=== PATIENT | female | born 1960 | race Caucasian/White ===

== ENCOUNTER 2019-05-01 16:45 | Emergency (ER) | payer MEDICAID, SELFPAY ==
--- NOTE | ~2019-05-01 | XR_ITS ---
XR chest 2V 05/01/2019 17:20 Indication: Redness of breath. History of CHF. Procedure: PA and lateral views of the chest Comparison: Comparison to multiple prior studies sequentially, with oldest reviewed study dated 06/2017. Findings: Cardiomegaly with mild interstitial edema. No pleural effusion or pneumothorax. No acute os seous abnormality. Impression: 1: Cardiomegaly with mild interstitial edema. Reviewed, dictated and finalized at location A. TAIN SUPERVISOR Impression: 1: Cardiomegaly with mild interstitial edema.
[2019-05-01 16:49] VITALS: BP 124/80; PULSE 90; RESP 16; TEMP 36.9; O2SAT 100
--- NOTE | 2019-05-01 16:55 | ECG_ITS ---
Measurements Intervals [place] Rate: 92 P: 35 CO: 145 QRS: 64 QRSD: 106 T: 198 QT: 394 QTc: 489 Interpretive Statements SINUS RHYTHM POSSIBLE LEFT ATRIAL ENLARGEMENT CANNOT RULE OUT SEPTAL INFARCT, AGE INDETERMINATE BORDERLINE ST-T WAVE ABNORMALITY- INF/LAT LEADS BASELINE ARTIFACT- I, II, AVR, AVL ABNORMAL ECG Electronically Signed On 05-01-2019 17:20:08 SERVICE NOW DEVELOPER by Figueroa Viramontes D.O.
[2019-05-01 17:05] LABS: Basophils Percent Auto 0.6 % (0.2-1.2); Eosinophils Percent Auto 0.6 % (0-4.4); Hematocrit 43.1 % (37.0-47.0); Hemoglobin 13.3 g/dL (12.0-15.0); Immature Granulocyte Absolute 0.02 K/mm3 (0.00-0.031); Immature Granulocyte Percent A 0.3 % (0-0.5); Lymphocytes Percent Auto 13.4 % (18.3-44.2); Mean Corpuscular HGB Conc 30.9 g/dl (32-36); Mean Corpuscular Hemoglobin 30.9 pg (26-34); Mean Platelet Volume 8.7 fl (7.4-10.4); Monocytes Absolute Auto 0.5 K/mm3 (0.1-0.6); Monocytes Percent Auto 7.7 % (2.6-8.5); Neutrophils Absolute Auto 5.2 K/mm3 (1.3-6.7); Neutrophils Percent Auto 77.4 % (45.5-73.1); Platelet Count Result 309 k/mm3 (150-375); Red Blood Count 4.31 M/mm3 (4.2-5.4); Red Cell Distribution Width 15.4 % (11.5-14.5); White Blood Count 6.7 K/mm3 (4.5-10.0)
[2019-05-01 17:17] LABS: Blood Urea Nitrogen 23 mg/dL (7-17); Calcium 8.8 mg/dL (8.4-10.2); Carbon Dioxide 19 mmol/L (22-30); Chloride 107 mmol/L (98-107); Estimated CRCL calculation 35 ml/min; Estimated Glomerular Filt Rate 51; Glucose 125 mg/dL (65-105); Potassium 4.7 mmol/L (3.4-5.0); Sodium 137 mmol/L (137-145)
--- NOTE | 2019-05-06 15:06 | PC.NURSE ---
LATE ENTRY. AT 1757 ON 05/01/2019 PT WAS NOT FOUND IN WAITING ROOM
== END 2019-05-01 17:57 | disposition left against medical advice (07) ==
LOC: ANHED 19:32
PROVIDERS: Emergency Provider Emergency Medicine
DX: R06.9 Unspecified abnormalities of breathing (principal)
CPT/HCPCS: 36415; 71046; 80048; 85025; 93005; 99199

== ENCOUNTER 2019-05-13 18:18 | Observation (INO) | payer OTHER, SELFPAY ==
--- NOTE | ~2019-05-13 | XR_ITS ---
EXAMINATION: XR chest 2V DATE: 05/13/2019 19:07 INDICATION: Shortness of breath TECHNIQUE: AP and lateral views of the chest are obtained. COMPARISON: 05/01/2019 FINDINGS: The lungs are hyperinflated. There are minimal opacities of the mid and lower lung zones. S mall pleural effusions are present. There is no pneumothorax. Stable cardiomegaly is noted. There is mild thoracic spondylosis. IMPRESSION: 1. Opacities of the mid and lower lung zones which could reflect pneumonia and/or pulmonary edema and /or atelectasis. 2. Stable cardiomegaly. Reviewed, dictated and finalized at location A. R MACHINE IMPRESSION: 1. Opacities of the mid and lower lung zones which could reflect pneumonia and/ or pulmonary edema and/or atelectasis. 2. Stable cardiomegaly.
[2019-05-13 18:35] VITALS: BP 138/90; PULSE 91; PULSE 93; RESP 28; O2SAT 96
--- NOTE | 2019-05-13 19:05 | ED.SOB ---
HPI - SOB/Dyspnea General Chief Complaint: Weakness <Theodore Parsons MD - Last Filed: 05/13/19 19:14> Stated Complaint: SOB <Theodore Parsons MD - Last Filed: 05/13/19 19:14> Time Seen by Provider: 05/13/19 18:23 <Theodore Parsons MD - Last Filed: 05/13/19 19:14> History of Present Illness HPI Narrative: Patient is a 58-year-old female who presents ER with shortness of breath and chest pain. Ongoing for several weeks. Pain is across the center of her chest and is only worsened by dyspnea and not necessarily with exertion. No runny nose/sore throat/productive cough. She is not oxygen dependent. Patient is known to have an ejection fraction of 10 to 15%. She is supposed to be wearing a LifeVest defibrillator but she reports it does not fit her right so she does not wear it. Her card setter is Dr. Viramontes. She is unaware of the name of her medications that she takes to help control her heart failure and heart disease. <Theodore Parsons MD - Last Filed: 05/13/19 19:14> Related Data Allergies/Adverse Reactions: Allergies Allergy/AdvReac Type Severity Reaction Status Date / Time No Known Allergies Allergy Verified 05/07/19 14:06 <Theodore Parsons MD - Last Filed: 05/13/19 19:14> Review of Systems Review of Systems: All systems reviewed & are unremarkable except as noted in HPI and below <Theodore Parsons MD - Last Filed: 05/13/19 19:14> Constitutional: Constitutional: Denies chills, Denies fever(s) and Denies weakness <Theodore Parsons MD - Last Filed: 05/13/19 19:14> ENT: Denies nasal congestion and Denies sore throat <Theodore Parsons MD - Last Filed: 05/13/19 19:14> Cardiovascular: Cardiovascular: Reports chest pain, Denies rapid heart rate and Denies radiating jaw, neck or arm pain <Theodore Parsons MD - Last Filed: 05/13/19 19:14> Respiratory: Respiratory: Denies cough, Reports dyspnea and Denies wheezing <Theodore Parsons MD - Last Filed: 05/13/19 19:14> Gastrointestinal: Gastrointestinal: Denies abdominal pain, Denies nausea and Denies vomiting <Theodore Parsons MD - Last Filed: 05/13/19 19:14> PMFSH Past Medical History Medical History: Medical History (Updated 05/14/19 @ 01:18 by Regina Pichardo MD) CHF (congestive heart failure) Depression Gastric perforation Hypertension Hypothyroidism <Theodore Parsons MD - Last Filed: 05/13/19 19:14> Surgical History Surgical History: Surgical History (Updated 05/13/19 @ 19:07 by Theodore Parsons MD) H/O cardiac catheterization History of laparotomy <Theodore Parsons MD - Last Filed: 05/13/19 19:14> Family History Family History: Family History Father Hypertension Mother Hypertension Other Depression Cancer Other Cerebrovascular accident Family history of cardiovascular disease Family history of malignant neoplasm Family history of tuberculosis <Theodore Parsons MD - Last Filed: 05/13/19 19:14> Social History Social History: Social History Social History: Patient current lives alone. She is a full code. Her power of attorney law clerk is Kerry Wren, her daughter. Smoking packs per day: 1 Smoking cigarettes per day: 20.0 Years smoked: 10 Smoking pack-years: 10.00 Smoking status: Former smoker Tobacco type: cigarettes Second hand tobacco smoke exposure: Yes Smoking end date: 04/01/96 Alcohol intake: former Drinks per week: 1 Substance use: former Substance use type: marijuana Gender identity (if verbalized by the patient): Female Spiritual care concerns: No Agree to blood products: Yes <Theodore Parsons MD - Last Filed: 05/13/19 19:14> Exam Narrative: Exam Narrative: GENERAL: Chronically ill-appearing, well-nourished, and in no acute distress. HEAD: Normocephalic, atraumatic. EYES: PERRL and EOMI. ENT:
[2019-05-13] MEDS: BELLADONNA ALK/PHENOB ELIX 10 ML, MAG HYDROX/ALUMINUM HYD/SIMETH 30 ML, LIDOCAINE HCL 2... PO (19:33)
[2019-05-13 19:34] LABS: Basophils Percent Auto 0.5 % (0.2-1.2); Eosinophils Percent Auto 0.5 % (0-4.4); Hemoglobin 13.7 g/dL (12.0-15.0); Immature Granulocyte Absolute 0.02 K/mm3 (0.00-0.031); Immature Granulocyte Percent A 0.3 % (0-0.5); Lymphocytes Absolute Auto 1.06 K/mm3 (0.9-3.2); Mean Corpuscular HGB Conc 31.1 g/dl (32-36); Mean Corpuscular Hemoglobin 30.2 pg (26-34); Mean Corpuscular Volume 97.1 fl (80-100); Mean Platelet Volume 8.9 fl (7.4-10.4); Monocytes Absolute Auto 0.4 K/mm3 (0.1-0.6); Monocytes Percent Auto 6.4 % (2.6-8.5); Neutrophils Absolute Auto 4.7 K/mm3 (1.3-6.7); Neutrophils Percent Auto 75.3 % (45.5-73.1); Platelet Count Result 326 k/mm3 (150-375); Red Blood Count 4.53 M/mm3 (4.2-5.4); Red Cell Distribution Width 15.1 % (11.5-14.5); White Blood Count 6.3 K/mm3 (4.5-10.0)
[2019-05-13 19:46] LABS: Alanine Aminotransferase 23 U/L (4-35); Albumin Level 3.7 g/dL (3.5-5.1); Alkaline Phosphatase 93 U/L (38-126); Aspartate Amino Transferase 23 U/L (14-36); Bilirubin,Total 0.8 mg/dL (0.2-1.3); Blood Urea Nitrogen 22 mg/dL (7-17); Calcium 9.5 mg/dL (8.4-10.2); Carbon Dioxide 17 mmol/L (22-30); Chloride 108 mmol/L (98-107); Estimated Glomerular Filt Rate > 60; Glucose 103 mg/dL (65-105); Lipase 75 U/L (23-300); Sodium 139 mmol/L (137-145)
[2019-05-13 19:58] LABS: Troponin I 0.019 ng/mL (0.000-0.034)
[2019-05-13 20:34] LABS: NT Pro B Type Natriuretic Pept > 35000 PG/ML (5-100)
[2019-05-13] MEDS: FUROSEMIDE INJ 40 MG/4 ML VIAL IV PUSH (21:31)
[2019-05-13 21:48] VITALS: BP 119/97; PULSE 87; RESP 26; O2SAT 99
[2019-05-13 22:30] VITALS: BP 132/89; PULSE 85; RESP 20; TEMP 36.4; O2SAT 93; BMI 20.1
--- NOTE | 2019-05-13 23:12 | ADMGEN ---
This patient, Nancy Jaramillo, was admitted to [facility] Surg Room 306-01. Patient/family oriented to hospital policies and general routines including ID bracelet, bed and alarms, visiting hours, pain management, procedures, bathroom and other care routines, personal items, smoking policy, room service/diet, and visiting hours. Valuables list has been completed. Information on how to activate the Rapid Response Team has been discussed. Patient/Family are encouraged to report perceived risks to care and to ask questions if they do not understand what they are told or what they should do.
--- NOTE | 2019-05-13 23:29 | ADMGEN ---
This patient, Nancy Jaramillo, was admitted to [facility] Surg Room 306-01. Patient/family oriented to hospital policies and general routines including ID bracelet, bed and alarms, visiting hours, pain management, procedures, bathroom and other care routines, personal items, smoking policy, room service/diet, and visiting hours. Valuables list has been completed. Information on how to activate the Rapid Response Team has been discussed. Patient/Family are encouraged to report perceived risks to care and to ask questions if they do not understand what they are told or what they should do.
[2019-05-13 23:59] LABS: Troponin I 0.017 ng/mL (0.000-0.034)
[2019-05-14] VITALS (11 sets, daily range): BP systolic 102–128; BP diastolic 63–85; PULSE 80–90; RESP 16–20; TEMP 36.1–36.9; O2SAT 98–100
--- NOTE | 2019-05-14 00:19 | PC.NURSE ---
Stated that the only home medication that she was taking was Lisinopril. The other home medications she had not been taking due to an insurance issue. According to the pharmacy tab on the computer the other home medications had not been filled since May of 2018.
[2019-05-14 01:24] LABS: Troponin I 0.016 ng/mL (0.000-0.034)
[2019-05-14] MEDS: FUROSEMIDE INJ 40 MG/4 ML VIAL IV PUSH (08:52)
--- NOTE | 2019-05-14 11:21 | PM.IMHP ---
H&P: HPI History of Present Illness Chief complaint: chf exacerbation Narrative: Nancy Jaramillo is a 58 year old female with PMH significant for non-ischemic chronic systolic and diastolic CHF with EF 10-15% on echo performed 02/17/19, hypothyroidism, hypertension, depression, hx of gastric perforation during a period of heavy NSAID use, and cardiac cath in 2018 which revealed normal cardiac arteries per chart review. She presented to the ED with complaints of dyspnea, weakness, and chest pain for 3 weeks. She states that her daughter urged her to come in for evaluation due to the aforementioned sx. She reports that her chest pain was in the center of her chest and worse with inspiration. She also endorses orthopnea and PND. She denies fever, abdominal pain, chills, nausea, and vomiting. She denies diarrhea. She has no urinary complaints. She denies cough. The pt reports that she has not been taking her lasix, metoprolol, or protonix for approximately 3 weeks since she ran out of refills. She also states that she missed her outpatient cardiology follow-up appointment with Dr. Viramontes last week because she was not feeling well. She has a life vest at home but has not been wearing it for the past two weeks because she states that it is not fitting properly. She was recently hospitalized 02/17/2020-02/21/2020 for acute on chronic CHF exacerbation due to medication non-compliance. Initial workup in the emergency department was consistent with acute on chronic exacerbation of CHF. BNP was elevated >06306, CXR revealed cardiomegaly with mid and lower lung opacities and small pleural effusions, no evidence of leukocytosis, ECG revealed LVH with no evidence of acute ischemia, troponins were negative x3, and Cr 0.9. Review of Systems Review of Systems: Narrative: Constitutional: Denies fever, chills, and appetite change. Reports weakness and fatigue. Eyes: Denies vision change. No additional eye complaints. ENT: Denies change in hearing, nasal congestion, dysphagia, odynophagia,and sore throat. Cardiovascular: Endorses PND, orthopnea, lightheadedness, and chest pain at admission. Pt reports that these sx have improved significantly today. Respiratory: Denies cough. Endorses dyspnea. Gastrointestinal: Denies abdominal pain, nausea, and vomiting. Genitourinary: Denies dysuria, frequency, urgency, and hesitancy. Musculoskeletal: Denies joint pain and swelling. Denies muscle cramps and weakness. Skin: Denies lesions and wounds. Neurologic: Denies focal weakness, paresthesias, confusion, and speech change. Psychiatric: Denies mood change. Reports hx of depression but reports that she has a good support system and has been able to manage her depression without any antidepressants. Hematologic: Reports easy bruising. Denies bleeding. [facility] Past Medical History Medical History CHF (congestive heart failure) Depression Gastric perforation Hypertension Hypothyroidism Surgical History Surgical History H/O cardiac catheterization History of laparotomy Family History Family History Father Hypertension Mother Hypertension Other Depression Cancer Other Cerebrovascular accident Family history of cardiovascular disease Family history of malignant neoplasm Family history of tuberculosis Social History Social History Social History: Patient current lives alone. She is a full code. Her power of family law attorney is Kerry Wren, her daughter. Smoking packs per day: 1 Smoking cigarettes per day: 20.0 Years smoked: 10 Smoking pack-years: 10.00 Smoking status: Former smoker Tobacco type: cigarettes Second hand tobacco smoke exposure: Yes Smoking end date: 04/01/96 Alcohol intake: former Drinks per we
[2019-05-14] MEDS: METOPROLOL SUCCINATE EXT REL 12.5 MG TABCR PO (13:37)
[2019-05-14 14:40] LABS: Free T4 Free Thyroxine Reflex 0.77 ng/dL (0.78-2.19)
[2019-05-14 15:08] LABS: Blood Urea Nitrogen 29 mg/dL (7-17); Carbon Dioxide 24 mmol/L (22-30); Chloride 98 mmol/L (98-107); Estimated CRCL calculation 37 ml/min; Estimated Glomerular Filt Rate 51; Glucose 90 mg/dL (65-105); Magnesium 2.1 mg/dL (1.6-2.3); Potassium 4.3 mmol/L (3.4-5.0); Sodium 135 mmol/L (137-145)
--- NOTE | 2019-05-14 16:15 | PM.CNCAR ---
Assessment and Plan Assessment and plan (1) Nonischemic cardiomyopathy: Code(s): I42.8 - Other cardiomyopathies Status: Acute (2) Combined systolic and diastolic cardiac dysfunction: Code(s): I51.89 - Other ill-defined heart diseases Status: Acute Assessment and Plan: Resume Metoprolol and Furosemide. Agree with changing Furosemide back to PO dosing. Continue Lisinopril. Resume Life Vest to protect her from sudden cardiac arrest. (3) Non compliance with medical treatment: Code(s): Z91.19 - Patient's noncompliance with other medical treatment and regimen Status: Acute Assessment and Plan: Encourage her to be compliant with medication, follow up, Life vest. (4) NSVT (nonsustained ventricular tachycardia): Code(s): I47.2 - Ventricular tachycardia Status: Acute Assessment and Plan: Metoprolol will help decrease episodes. Life Vest to protect from sudden cardiac arrest. If echo in 3 months after taking medications still shows EF <35%, then would be candidate for ICD. History of Present Illness History of Present Illness Consult date/time: 05/14/19 16:15 Consult regarding heart failure. 58 yr old woman who is my regular cardiology patient who has a history of non-ischemic cardiomyopathy from cardiac cath in 2018 that showed normal coronaries, has systolic heart failure with EF <15% dated back at least May 2018, non-compliance with medication. She presents to hospital compaining of worsening sob that has gradually worsened over the past couple of weeks. She states she ran out of Lasix and Metoprolol about 3 weeks ago and could not get it filled in pharmacy for some reason. She was supposed to follow up with me in my office but had to cancel the appoinment. She reports chest discomfort for last 2 weeks but not now. She was diuresed with IV lasix and her breathing is better now. No edema of legs. On telemetry it was noted she had three 5 beat VT. She has life vest at home from last admission but has not been wearing it as it is too big and does not fit properly. Reason For Visit: chf exacerbation Review of Systems Constitutional: Constitutional: Reports as per HPI and Reports fatigue Cardiovascular: Cardiovascular: Reports as per HPI, Reports chest pain and Denies palpitations Respiratory: Respiratory: Reports as per HPI and Reports dyspnea Gastrointestinal: Gastrointestinal: Reports as per HPI and Denies abdominal pain Genitourinary: Genitourinary: Reports as per HPI Neurologic: Reports as per HPI and Denies Abnormal speech present [facility] Past Medical History Medical History CHF (congestive heart failure) Depression Gastric perforation Hypertension Hypothyroidism Surgical History Surgical History H/O cardiac catheterization History of laparotomy Family History Family History Father Hypertension Mother Hypertension Other Depression Cancer Other Cerebrovascular accident Family history of cardiovascular disease Family history of malignant neoplasm Family history of tuberculosis Social History Social History Social History: Patient current lives alone. She is a full code. Her power of sports attorney is Kerry Wren, her daughter. Smoking packs per day: 1 Smoking cigarettes per day: 20.0 Years smoked: 10 Smoking pack-years: 10.00 Smoking status: Former smoker Tobacco type: cigarettes Second hand tobacco smoke exposure: Yes Smoking end date: 04/01/96 Alcohol intake: former Drinks per week: 1 Substance use: former Substance use type: marijuana Gender identity (if verbalized by the patient): Female Spiritual care concerns: No Agree to blood products: Yes Meds Home Medicati
--- NOTE | 2019-05-14 17:32 | PCDIET ---
Elizabeth DIAMOND for this patient notified that patient states she cannot have anyone bring in her life vest from home because her house is locked with an alarm and no one is allowed in. She states that she has not been wearing it, too large and uncomfortable, causes her to sweat. She states that when she goes home, she may try to wear it with a sports bra.
[2019-05-14] MEDS: FUROSEMIDE 20 MG TABLET PO (19:07)
[2019-05-15] VITALS: PULSE 82
[2019-05-15 04:00] VITALS: PULSE 76
[2019-05-15 06:00] VITALS: BP 117/83; PULSE 81; RESP 16; TEMP 36.8; O2SAT 95
[2019-05-15 06:23] LABS: Basophils Percent Auto 0.7 % (0.2-1.2); Eosinophils Percent Auto 0.7 % (0-4.4); Hematocrit 45.3 % (37.0-47.0); Hemoglobin 14.7 g/dL (12.0-15.0); Immature Granulocyte Absolute 0.02 K/mm3 (0.00-0.031); Immature Granulocyte Percent A 0.3 % (0-0.5); Lymphocytes Absolute Auto 1.05 K/mm3 (0.9-3.2); Lymphocytes Percent Auto 17.7 % (18.3-44.2); Mean Corpuscular HGB Conc 32.5 g/dl (32-36); Mean Corpuscular Hemoglobin 30.2 pg (26-34); Mean Corpuscular Volume 93.2 fl (80-100); Monocytes Absolute Auto 0.5 K/mm3 (0.1-0.6); Monocytes Percent Auto 7.6 % (2.6-8.5); Neutrophils Absolute Auto 4.3 K/mm3 (1.3-6.7); Platelet Count Result 332 k/mm3 (150-375); Red Blood Count 4.86 M/mm3 (4.2-5.4); Red Cell Distribution Width 14.6 % (11.5-14.5); White Blood Count 5.9 K/mm3 (4.5-10.0)
[2019-05-15 06:26] LABS: Blood Urea Nitrogen 28 mg/dL (7-17); Calcium 8.7 mg/dL (8.4-10.2); Carbon Dioxide 22 mmol/L (22-30); Chloride 101 mmol/L (98-107); Cholesterol 113 mg/dL (0-200); Estimated CRCL calculation 41 ml/min; Estimated Glomerular Filt Rate 57; Glucose 90 mg/dL (65-105); HDL Direct 41 mg/dL; Potassium 4.5 mmol/L (3.4-5.0); Sodium 136 mmol/L (137-145); Triglycerides 96 mg/dL (<150)
[2019-05-15 06:37] LABS: LDL Cholesterol Direct 56 mg/dL
--- NOTE | 2019-05-15 07:47 | PM.PNCARD ---
Progress Note: A&P Assessment and Plan (1) Nonischemic cardiomyopathy: Code(s): I42.8 - Other cardiomyopathies Status: Acute (2) Combined systolic and diastolic cardiac dysfunction: Code(s): I51.89 - Other ill-defined heart diseases Status: Acute Assessment and Plan: Continue heart failure including Metoprolol, Lisinopril and Furosemide medication. She will put on her Life Vest when she gets home and she has made contact with [facility] personnel who will come out to her home to make sure it fits properly. She may d/c home. F/U with me in 1-2 weeks. (3) Non compliance with medical treatment: Code(s): Z91.19 - Patient's noncompliance with other medical treatment and regimen Status: Acute Assessment and Plan: Advised to be compliant with medications, life vest and f/u. (4) NSVT (nonsustained ventricular tachycardia): Code(s): I47.2 - Ventricular tachycardia Status: Acute Assessment and Plan: No events overnight. The previous day she had 3 episodes of 4-6 beats NSVT. Resuming Metoprolol will help with that. Subjective Date/time seen: 05/15/19 07:47 Denies chest pain or sob. She wants to go home. Exam Const: General: comfortable and no acute distress Neck: Neck: no JVD Carotids: no bruits Resp: Auscultation: clear to auscultation bilaterally, no crackles, no rales, no rhonchi and no wheezes Cardio: Rate: regular rate Rhythm: regular rhythm Heart sounds: no murmurs GI: Inspection: non-distended Neuro: Speech: normal speech Extrem: Right lower extremity: no edema Left lower extremity: no edema Objective Data Vital Signs Vital Signs: Vital Signs - 24 hr 05/14/19 08:00 05/14/19 12:00 05/14/19 12:34 Temperature Pulse Rate 82 85 80 Respiratory Rate Blood Pressure 102/63 Pulse Oximetry 05/14/19 13:37 05/14/19 14:00 05/14/19 16:00 Temperature 97.0 F L Pulse Rate 80 86 85 Respiratory Rate 16 Blood Pressure 110/85 Pulse Oximetry 100 05/14/19 20:00 05/14/19 22:00 05/15/19 00:00 Temperature 97.8 F Pulse Rate 84 84 82 Respiratory Rate 20 Blood Pressure 110/68 Pulse Oximetry 98 05/15/19 04:00 05/15/19 06:00 Temperature 98.2 F Pulse Rate 76 81 Respiratory Rate 16 Blood Pressure 117/83 Pulse Oximetry 95 Intake/Output Intake/Output: Intake & Output 05/12/19 05/13/19 05/14/19 05/15/19 23:59 23:59 23:59 23:59 Intake Total 2830 450 Output Total 1600 1000 Balance 1230 -550 Meds/Results Medications: Active Medications Generic Name Dose Route Start Last Admin Trade Name Freq PRN Reason Stop Dose Admin Furosemide 20 mg 05/14/19 17:00 05/14/19 19:07 Lasix Tablet PO 20 mg BID DEB Administration Lisinopril 2.5 mg 05/14/19 11:20 05/14/19 13:36 Prinivil PO Not Given QAM DEB Metoprolol Succinate 12.5 mg 05/14/19 11:20 05/14/19 13:37 Toprol Xl PO 12.5 mg QAM DEB Administration Radiology Results: ITS Impressions Chest X-Ray 05/13/19 19:16 IMPRESSION: 1. Opacities of the mid and lower lung zones which could reflect pneumonia and/or pulmonary edema and/or atelectasis. 2. Stable cardiomegaly. Labs Labs: Laboratory Results - last 24 hr 05/14/19 05/14/19 05/14/19 00:50 00:50 14:53 WBC RBC Hgb Hct MCV MCH MCHC RDW Plt Count MPV Immature Gran % (Auto) Neut % (Auto) Lymph % (Auto) Mcintosh % (Auto) Eos % (Auto) Baso % (Auto) Lymph # (Auto) Mcintosh # (Auto) Eos # (Auto) Baso # (Auto) Abs Immat Gran (auto) Absolute Neuts (auto) Absolute Nucleated RBC Nucleated RBC % Sodium 135 L Potassium 4.3 Chloride 98 Carbon Dioxide 24 BUN 29 H Creatinine 1.10 H Estim Creat Clear Calc 37 Estimated GFR 51 L Glucose 90 Calcium 9.0 Magnesium 2.1 Triglycerides Cholesterol LDL Cholesterol Direct HDL Direct TSH (Reflex
[2019-05-15 08:00] VITALS: PULSE 81
--- NOTE | 2019-05-15 08:10 | PC.NURSE ---
Addendum entered by Carlie Turcios RN 05/15/19 08:49: Delete first sentence of note below. Heart rate stable- SR with rate low 80s. Original Note: Dr Viramontes notified of heart rate high 40s- low 50s -sinus brittaney. I also advised him that patient will not allow anyone into her home to picker packer life vest and bring to hospital for adjustment. He stated OK to discharge home without vest and to provide patient with phone number to contact Life Vest company for fitting adjustments.
[2019-05-15] MEDS: LEVOTHYROXINE SODIUM 25 MCG TABLET PO (08:54)
[2019-05-15] MEDS: lisinopriL 2.5 MG TABLET PO (08:55)
[2019-05-15] MEDS: FUROSEMIDE 20 MG TABLET PO (08:55)
--- NOTE | 2019-05-15 09:11 | PM.IMPN ---
Progress Note: A&P Assessment and Plan (1) Acute exacerbation of CHF (congestive heart failure): Qualifiers: Heart failure type: combined systolic and diastolic Qualified Code(s): I50.43 - Acute on chronic combined systolic (congestive) and diastolic (congestive) heart failure Code(s): I50.9 - Heart failure, unspecified Status: Acute Assessment and Plan: Presentation and findings are consistent with acute on chronic CHF exacerbation. This episode was likely exacerbated by medication noncompliance as the pt stopped taking her furosemide and metoprolol 3 weeks ago. Most recent echo 02/17/19 revealed evidence of left ventricular enlargement, EF 10-15%, abnormal LV diastolic dysfunction, right and left atrial enlargement, moderate mitral regurgitation, trace tricuspid regurgitation, and mild pulmonic regurgitation. The pt has responded very well to diuresis with IV furosemide. She was transitioned to PO furosemide yesterday. She feels much better today and denies dyspnea and chest pain. She was seen by Dr. Viramontes who recommended that she continue metoprolol, lisinopril, and furosemide. She was advised to wear her LifeVest. We have reached out to the LifeVest company who will come to her home to ensure it is fitting properly. She will need to follow-up with Dr. Viramontes in 1-[address] Viramontes, the pt will need to be compliant with all her medications for 3 months. If echo reveals EF <35% in 3 months, she will be a candidate for ICD placement. This, as well as medication and LifeVest compliance was discussed with the pt at length. She verbalized understanding. -2gm sodium restriction -Daily weights -Continue metoprolol, furosemide, and lisinopril (2) Hypertension: Qualifiers: Hypertension type: essential hypertension Qualified Code(s): I10 - Essential (primary) hypertension Code(s): I10 - Essential (primary) hypertension Status: Acute Assessment and Plan: BP reviewed and stable. Pt is on lisinopril 2.5mg QD prior to admission. -Will continue lisinopril 2.5mg QD (3) Non compliance with medical treatment: Code(s): Z91.19 - Patient's noncompliance with other medical treatment and regimen Status: Acute Assessment and Plan: The pt reports she did not take lasix or metoprolol for 2-3 weeks prior to admission. She has also not been using her LifeVest for approximately 2 weeks because she states it does not fit well. I discussed the importance of compliance with medications and life vest use at length with the pt. I discussed potential effects of non-compliance which include but are not limited to progressive cardiac deterioration and sudden cardiac arrest and . The pt verbalized understanding and states that she intends to be compliant with her medications and LifeVest in the future. A rep from [employer] will be coming out to her home to check the fit. She advised that she will put it on as soon as she gets home. (4) DVT prophylaxis: Code(s): Z29.9 - Encounter for prophylactic measures, unspecified Status: Acute Assessment and Plan: Pt has hx of gastric perforation. Will order SCDs for DVT prophylaxis. (5) Depression: Qualifiers: Depression Type: unspecified Qualified Code(s): F32.9 - Major depressive disorder, single episode, unspecified Code(s): F32.9 - Major depressive disorder, single episode, unspecified Status: Acute Assessment and Plan: The pt has a hx of depression but states that she has been able to manage this without any antidepressants.The pt lives at home alone but states that she has a good support system. She is in good spirits today. (6) Chest pain: Qualifiers: Chest pain type: unspecified Qualified Code(s): R07.9 - Chest pain, unspecified Code(s): R07.9 - Chest pain, unspecified Status: Resolved Assessment and Plan: The pt reported ch
[2019-05-15 10:03] VITALS: PULSE 90
[2019-05-15] MEDS: METOPROLOL SUCCINATE EXT REL 12.5 MG TABCR PO (10:03)
--- NOTE | 2019-05-15 13:01 | PM.DS ---
DS: Diagnosis Discharge Diagnosis (1) Acute exacerbation of CHF (congestive heart failure): Qualifiers: Heart failure type: combined systolic and diastolic Qualified Code(s): I50.43 - Acute on chronic combined systolic (congestive) and diastolic (congestive) heart failure Code(s): I50.9 - Heart failure, unspecified Status: Acute Assessment and Plan: Discharge Summary Date of Service 05/15/2019 Mrs. Jaramillo is a 58 y.o. female with PMH significant for non-ischemic chronic systolic and diastolic CHF with EF 10-15% on echo performed 02/17/19, hypothyroidism, hypertension, depression, hx of gastric perforation during a period of heavy NSAID use, and cardiac cath in 2018 which revealed normal cardiac arteries per chart review who presented to the ED with complaints of dyspnea, weakness, and chest pain for 3 weeks. She also c/o orthopnea and PND. She reported that she had not taken her lasix or metoprolol for approximately 3 weeks since she ran out of refills. She also missed her outpatient cardiology follow-up with Dr. Viramontes and endorsed that she had not worn her LifeVest for two weeks because she did not feel it fit. She was recently hospitalized 02/17/2020-02/21/2020 for acute on chronic CHF exacerbation due to medication non-compliance. Most recent echo 02/17/19 revealed evidence of left ventricular enlargement, EF 10-15%, abnormal LV diastolic dysfunction, right and left atrial enlargement, moderate mitral regurgitation, trace tricuspid regurgitation, and mild pulmonic regurgitation. Initial workup in the emergency department was consistent with acute on chronic exacerbation of CHF. BNP was elevated >53935, CXR revealed cardiomegaly with mid and lower lung opacities and small pleural effusions, there was no evidence of leukocytosis, ECG revealed LVH and no evidence of acute ischemia, troponins were negative x3, and Cr 0.9. She was treated with IV lasix and responded very well. Her dyspnea, weakness, and chest discomfort resolved completely with diuresis. Dr. Viramontes was consulted and recommended that she continue lisinopril and resume metoprolol and lasix at discharge. Extensive time was spent counseling the pt on the importance of medication and LifeVest compliance. I discussed that her low ejection fraction puts her at risk for severe arrhythmias, sudden cardiac arrest, and . I explained that her LifeVest must be worn for this reason. I requested that she have her LifeVest brought to the hospital but she refused and stated she would not let anyone in her home to get it. We have reached out to the LifeVest company who will come to her home to ensure it is fitting properly. She will need to follow-up with Dr. Viramontes in 1-[address] Viramontes, the pt will need to be compliant with all her medications for 3 months. If echo reveals EF <35% after 3 months of optimal medical therapy, she will be a candidate for ICD placement. The pt verbalized understanding and agreed to be compliant. She was provided with 30 day prescriptions for her medications and advised that she must return to her tube wrapper and PCP for follow-up, labs, and further refills. At the time of discharge, the pt is hemodynamically stable and neurologically intact. She is tolerating PO intake well. She is ambulating without difficulty. Stool and voiding patterns are normal. She will have family members and friends available to check on her when she returns home. I called her PCP Dr. Snell's office to discuss the plan of care and need for follow-up and they were agreeable to schedule an appt for the pt, (2) Hypertension: Qualifiers: Hypertension type: essential hypertension Qualified Code(s): I10 - Essential (primary) hypertension Code(s): I10 - Essential (primary) hypertension Status: Acute Assessment and Plan: BP was monitored throughout the patient's hospital stay and was stable on lisinopril and metoprolol. (3) Non compliance with
== END 2019-05-15 14:50 | disposition home or self-care (01) ==
LOC: ANHED 20:11 → ANH3MEDSUR 21:43
PROVIDERS: Emergency Medicine; Physician Assistant; Admitting Provider Hospitalist; Emergency Provider Emergency Medicine; PCP Family Medicine; Visit Provider Hospitalist
DX: I11.0 Hypertensive heart disease with heart failure (principal); I50.43 Acute on chronic combined systolic (congestive) and diastolic (congestive) heart failure; Z91.14 Patient's other noncompliance with medication regimen; I47.2 Ventricular tachycardia; I42.8 Other cardiomyopathies; I08.1 Rheumatic disorders of both mitral and tricuspid valves; F32.9 Major depressive disorder, single episode, unspecified; E03.9 Hypothyroidism, unspecified; Z87.891 Personal history of nicotine dependence
CPT/HCPCS: 36415; 71046; 80048; 80053; 80061; 83690; 83735; 83880; 84439; 84443; 84484; 85025; 96374; 99285; A9270; G0378; G0379; J1940